=== PATIENT | male | born 1965 | race Caucasian/White ===

== ENCOUNTER → 2020-11-30 | Day surgery (SDC) | payer BC ==
[2020-11-26 12:19] LABS: BASOPHILS % 0.4 % (0.0-1.0); EOSINOPHILS # (AUTO) 0.2 (0.0-0.4); EOSINOPHILS % 2.9 % (0.0-6.0); HEMATOCRIT 36.5 % (38.2-49.6); HEMOGLOBIN 12.5 g/dL (14.0-18.0); LYMPHOCYTES # (AUTO) 3.4 (1.0-3.2); LYMPHOCYTES % 60.8 % (18.0-39.1); MEAN CORPUSCULAR HEMOGLOBIN 30.1 pg (28-32); MEAN CORPUSCULAR HGB CONC 34.2 g/dL (31-35); MONOCYTES # (AUTO) 0.6 (0.2-0.8); MONOCYTES % 11.4 % (4.4-11.3); NEUTROPHILS # (AUTO) 1.4 (2.1-6.9); NEUTROPHILS % 24.3 % (38.7-80.0); PLATELET COUNT 183 x10e3/uL (140-360); RED BLOOD COUNT 4.15 x10e6/uL (4.3-5.7); RED CELL DISTRIBUTION WIDTH 11.9 % (11.7-14.4)
[2020-11-26 12:43] LABS: ANION GAP 15.6 mmol/L (8-16); CALCIUM 9.3 mg/dL (8.4-10.2); CREATININE, SERUM 1.17 mg/dL (0.72-1.25); POTASSIUM 4.6 mmol/L (3.5-5.1)
[~2020-11-30] MED LIST: ALTOPREV40 MG PO; EPINEPHRINE 1 MG/ML 30ML VIAL ONE; FENTANYL CITRATE/PF 100MCG/2 ML INJ ONE; HYDROCODONE/APAP 10MG-325MG TAB ONE; LOSARTAN POTASS25 MG PO; MEPERIDINE HCL INJ 25 MG/ML VIAL ONE; METFORMIN HCL500 MG PO; MOBIC15 MG PO; OMEPRAZOLE40 MG PO; SODIUM CHLORIDE 0.9% 50ML 100 ML ONE
[2020-11-30 08:50] VITALS: BP 129/88
== END | disposition home or self-care (01) ==
LOC: OR 05:33
PROVIDERS: ATTEND Orthopaedic Surgery
DX: S43.432A Superior glenoid labrum lesion of left shoulder, initial encounter (principal); M75.102 Unspecified rotator cuff tear or rupture of left shoulder, not specified as traumatic; M19.012 Primary osteoarthritis, left shoulder; S43.92XA Sprain of unspecified parts of left shoulder girdle, initial encounter; M75.52 Bursitis of left shoulder; M24.012 Loose body in left shoulder; E11.9 Type 2 diabetes mellitus without complications; I10 Essential (primary) hypertension; M54.12 Radiculopathy, cervical region; M43.02 Spondylolysis, cervical region; X58.XXXA Exposure to other specified factors, initial encounter; Z01.810 Encounter for preprocedural cardiovascular examination; Z01.812 Encounter for preprocedural laboratory examination; Z20.822 Contact with and (suspected) exposure to COVID-19; Z79.84 Long term (current) use of oral hypoglycemic drugs; Z87.891 Personal history of nicotine dependence
CPT/HCPCS: 29807; 29824; 29826; 29827; 36415 ×2; 80048; 82948; 85025; 93005; J0690; J2175; J3010; U0002